=== PATIENT | male | born 1980 | race Asian ===

== ENCOUNTER 2017-04-17 08:17 | Emergency (ER) | payer OTHER ==
[~2017-04-17] VITALS: Ht 175.3 cm; Wt 74.8 kg
[2017-04-17 08:20] VITALS: TEMP 98.8
[2017-04-17 09:36] LABS: PLATELET COUNT 261 K/uL (142-355)
[2017-04-17 09:43] LABS: POTASSIUM 3.9 mmol/L (3.6-5.2); SODIUM 140 mmol/L (136-145)
[2017-04-17 11:12] VITALS: BP 113/72
== END 2017-04-17 11:12 | disposition home or self-care (01) ==
LOC: ED 08:17
PROVIDERS: Family Medicine
DX: R07.89 Other chest pain (principal); R00.1 Bradycardia, unspecified
CPT/HCPCS: 36415; 80053; 85027; 93005; 96374; 96375; 99284; J1170; J2405

== ENCOUNTER 2022-02-06 14:34 | Emergency (ER) | payer OTHER ==
[~2022-02-06] VITALS: Ht 175.3 cm; Wt 72.6 kg
[2022-02-06 14:37] VITALS: BP 112/80; TEMP 98.2
== END 2022-02-06 15:43 | disposition home or self-care (01) ==
LOC: ED 14:34
PROC: 2W3DX1Z Immobilization of Left Lower Arm using Splint (ICD-10-PCS; principal; 2022-02-06)
DX: S52.392A Other fracture of shaft of radius, left arm, initial encounter for closed fracture (principal); V86.69XA Passenger of other special all-terrain or other off-road motor vehicle injured in nontraffic accident, initial encounter; Y92.096 Garden or yard of other non-institutional residence as the place of occurrence of the external cause
CPT/HCPCS: 99283; 99284; J1885; J2175; J2405